=== PATIENT | female | born 1945 | race Caucasian/White ===

== ENCOUNTER → 2019-02-14 | Outpatient (REF) | payer MEDICARE ==
[2019-02-14 14:59] LABS: BACTERIA, URINE AUTO NEGATIVE (NEGATIVE); RBC, URINE AUTO TNTC /HPF (0-3); SQUAMOUS EPITHELIAL CELL UR AU 0 /HPF (0-6); WBC, URINE AUTO 12 /HPF (0-3)
== END ==
LOC: M SMT 13:02
PROVIDERS: ATTEND Specialist
DX: R31.0 Gross hematuria (principal)
CPT/HCPCS: 52281; 81015; 87086; 88108; G0463

== ENCOUNTER → 2019-03-01 | Outpatient (CLI) | payer MEDICARE ==
[~2019-03-01] MED LIST: ASPI81TA85 PO; DILT240C83 PO; ELIQ5TAB PO
--- NOTE | 2019-03-01 14:04 | REP ---
KUB ABDOMEN AND PELVIS: KUB film of the abdomen and pelvis performed. Bowel gas pattern is nonobstructive. Scattered vascular calcifications are seen in the abdomen and pelvis. A punctate calcification overlies the lower pole of the right kidney, approximately 2 mm in diameter. There is a phlebolith in the right pelvis. A vague 5 mm calcification is seen in the left pelvis. This could represent a phlebolith or distal ureteral calculus. Electronically Signed by Tristen Nathan MD 03/01/2019 06:31 P
== END ==
LOC: M SMT 13:05
PROVIDERS: ATTEND Nurse Practitioner Family
DX: N20.0 Calculus of kidney (principal)

== ENCOUNTER 2019-03-20 05:54 | Day surgery (SDC) | payer MEDICARE ==
[~2019-03-20] VITALS: Ht 165.1 cm; Wt 61.4 kg
[2019-03-20] MEDS ORDERED: ceFAZolin SOD 2 GM in IV 1 EA IV ONE (06:00)
[2019-03-20] MEDS ORDERED: LR 1,000 ML IV ONE (06:00)
[2019-03-20] MEDS ORDERED: LIDOCAINE 2% 5ML JELLY UROJET As Ordered ONE (06:38)
[2019-03-20] MEDS ORDERED: LIDOCAINE 1% MDV INJ 50 ML VIAL As Ordered ONE (06:38)
[2019-03-20] MEDS ORDERED: PROPOFOL 200 MG/20 ML VIAL As Ordered ONE ×2 (07:16→07:17)
[2019-03-20] MEDS ORDERED: fentaNYL 100 MCG/2 ML INJECTION (J3010) As Ordered ONE (07:17)
[2019-03-20] MEDS ORDERED: LIDOCAINE 2% INJ 100 MG/5 ML SDV (FOR ANES.) As Ordered ONE (07:17)
[2019-03-20] MEDS ORDERED: ONDANSETRON 4MG/2ML VIAL (J2405) As Ordered ONE (07:17)
[2019-03-20] MEDS ORDERED: dexameTHASONE 4 MG/ML 1ML VIAL (J1100) As Ordered ONE (07:17)
[2019-03-20] MEDS ORDERED: MIDAZOLAM INJ 2 MG/2 ML VIAL (J2250) As Ordered ONE (07:33)
[2019-03-20] MEDS ORDERED: CONRAY-60 60% 50ML VIAL (Q9961) As Ordered ONE (07:55)
[2019-03-20] MEDS ORDERED: LR 1,000 ML IV SCH (08:45)
[2019-03-20] MEDS ORDERED: PERCOCET 5MG/325MG TAB PO PRN (08:45)
[2019-03-20] MEDS ORDERED: METOCLOPRAMIDE INJ 10MG/2ML VIAL (J2765) IV PRN (08:45)
[2019-03-20] MEDS ORDERED: ONDANSETRON 4MG/2ML VIAL (J2405) IV PRN (08:45)
[2019-03-20] MEDS ORDERED: MEPERIDINE INJ 25 MG/ML VIAL (J2175) IV PRN (08:45)
[2019-03-20 08:55] VITALS: BP 128/66
--- NOTE | 2019-03-20 09:21 | RO ---
DATE OF SURGICAL PROCEDURE: 03/20/2019 PREOPERATIVE DIAGNOSIS: Gross hematuria but later found to have a left ureteral stone and a questionable small papillary lesion in the office. POSTOPERATIVE DIAGNOSIS: It appeared that the stone has passed and there were no significant abnormalities seen on cystoscopy. SURGEON: Dr. Ratna Lord LEAF SIZE PICKER: PROCEDURE: Cystoscopy and left retrograde pyelogram. ANESTHESIA: Intravenous (IV) sedation. FINDINGS: No papillary lesions and no filling defects, hydronephrosis, or ureteral dilation on retrograde pyelogram. INDICATIONS FOR PROCEDURE: The patient is a 73-year-old smoker who was seen for intermittent episodes of painless gross hematuria while on Eliquis with a factor V Leiden deficiency. She had a CT scan 02/06/2019 and this just showed for what believed to be renal vascular calcifications, but possibly nonobstructing calculi. A cystoscopy was done in the office on 02/14/2019 and there was a questionable small papillary lesion near the right ureteral orifice. Because the patient continued to have gross hematuria for so long it was decided to bring her to the operating room to do a biopsy of this area. In the meanwhile, she developed left flank pain and was seen at [facility] where a CT scan was done in February, which now showed a 4.5 mm stone in the distal left ureter. Since that time though, she has been pain-free and has passed some sands. She also has had no further gross hematuria. We discussed cancelling the procedure but she wants to make sure #1 that her stone had passed since there was a calcification seen on KUB and also about the lesions even though I had explained when I first saw it that I did not think it was very worrisome but because we could find no other reason for the gross hematuria thought it should be biopsied. Informed consent was obtained and we decided to proceed to the operating room. DESCRIPTION OF PROCEDURE: The patient was brought into the operating room. Sequential compression devices were in place and preoperative antibiotics had been given with Ancef. She was placed in the lithotomy position and prepped and draped in the usual fashion. Next, a 21-Danish cystoscope was inserted. The urethra was noted to be open without any evidence of lesions or strictures. Upon entering the bladder both ureteral orifices were seen. There was no evidence of sand or stone fragments seen in the bladder. The previously seen papillary lesion was no longer visualized. At this point, a cone-tip catheter was placed in the left ureteral orifice and a retrograde pyelogram was done. There was no filling defects, no dilation, and no hydronephrosis. At this point, it was decided not to look further since most likely she had passed the stone and that was the reason for the bleeding. The patient tolerated the procedure well and was returned to recovery room in stable condition.
[2019-03-20] MEDS ORDERED: fentaNYL 100 MCG/2 ML INJECTION (J3010) IV PRN (09:45)
== END 2019-03-20 08:58 | disposition home or self-care (01) ==
LOC: M SDC 05:54
PROVIDERS: ATTEND Specialist
DX: R31.0 Gross hematuria (principal); F17.210 Nicotine dependence, cigarettes, uncomplicated; D68.51 Activated protein C resistance; I48.91 Unspecified atrial fibrillation; M81.0 Age-related osteoporosis without current pathological fracture; Z88.1 Allergy status to other antibiotic agents; Z88.6 Allergy status to analgesic agent; Z88.8 Allergy status to other drugs, medicaments and biological substances; Z79.899 Other long term (current) drug therapy; Z79.01 Long term (current) use of anticoagulants; Z79.82 Long term (current) use of aspirin; Z87.442 Personal history of urinary calculi; Z86.718 Personal history of other venous thrombosis and embolism; Z98.51 Tubal ligation status; Z78.0 Asymptomatic menopausal state
CPT/HCPCS: 52000; 74420; C1769; J0690; J1100; J2250; J2405; J3010; Q9961

== ENCOUNTER 2019-06-28 08:43 | Day surgery (SDC) | payer MEDICARE ==
[~2019-06-28] VITALS: Ht 165.1 cm; Wt 60.3 kg
[~2019-06-28 08:43] MED LIST changes: +D3 22000 PO; +LIDOCAINE 2% INJ 100 MG/5 ML SDV (FOR ANES.) As Ordered ONE; +NS 1,000 ML IV ONE; +propofoL 200 MG/20 ML VIAL As Ordered ONE
--- NOTE | 2019-06-28 10:38 | ROOR ---
Patient Name: Marlene Owen Procedure Date: 06/28/2019 10:01 AM Date of : 1945 Age: 73 Room: [facility] Gender: Female Note Status: Finalized Procedure: Total Colonoscopy to Cecum + Biopsy Polypectomy + Hemoclip Indications: Positive Cologuard test Providers: Javed Mary MD Referring MD: JOHANN DAMON MD Requesting Provider: Medicines: Monitored Anesthesia Care Complications: No immediate complications. Procedure: Pre-Anesthesia Assessment: - The heart rate, respiratory rate, oxygen saturations, blood pressure, adequacy of pulmonary ventilation, and response to care were monitored throughout the procedure. The Colonoscope was introduced through the anus and advanced to the cecum, identified by appendiceal orifice and ileocecal valve. The colonoscopy was performed without difficulty. The patient tolerated the procedure well. The quality of the bowel preparation was excellent. Findings: The perianal and digital rectal examinations were normal. Non-bleeding internal hemorrhoids were found during retroflexion. The hemorrhoids were small and Grade I (internal hemorrhoids that do not prolapse). Multiple small and large-mouthed diverticula were found in the recto-sigmoid colon, sigmoid colon and descending colon. A small polyp was found in the rectum. The polyp was sessile. The polyp was removed with a jumbo cold forceps. Resection and retrieval were complete. A small polyp was found at 60 cm proximal to the anus. The polyp was sessile. The polyp was removed with a jumbo cold forceps. Resection and retrieval were complete. To prevent bleeding after the polypectomy, one hemostatic clip was successfully placed (MR conditional). There was no bleeding at the end of the procedure. The exam was otherwise without abnormality on direct and retroflexion views. Impression: - Non-bleeding internal hemorrhoids. - Diverticulosis in the recto-sigmoid colon, in the sigmoid colon and in the descending colon. - One small polyp in the rectum, removed with a jumbo cold forceps. Resected and retrieved. - One small polyp at 60 cm proximal to the anus, removed with a jumbo cold forceps. Resected and retrieved. Clip (MR conditional) was placed. - The examination was otherwise normal on direct and retroflexion views. - The exam was otherwise normal to the cecum. Recommendation: - Patient has a contact number available for emergencies. The signs and symptoms of potential delayed complications were discussed with the patient. Return to normal activities tomorrow. Written discharge instructions were provided to the patient. - High fiber diet. - Discharge patient to home. - Continue present medications. - Await pathology results. - Telephone GI clinic for pathology results in 1 week. - Repeat colonoscopy for symptoms only. - Return to referring physician. - The findings and recommendations were discussed with the patient's family. Javed Mary MD Javed Mary MD 06/28/2019 10:38:25 AM Electronically signed by Javed Mary MD Number of Addenda: 0 Note Initiated On: 06/28/2019 10:01 AM Estimated Blood Loss: Estimated blood loss: none.
[2019-06-28 11:00] VITALS: BP 121/79
== END 2019-06-28 11:15 | disposition home or self-care (01) ==
LOC: M OPP 08:43
PROVIDERS: ATTEND Internal Medicine Gastroenterology
DX: K64.0 First degree hemorrhoids (principal); K52.1 Toxic gastroenteritis and colitis; I48.91 Unspecified atrial fibrillation; K63.5 Polyp of colon; Z79.82 Long term (current) use of aspirin; Z88.8 Allergy status to other drugs, medicaments and biological substances; F17.210 Nicotine dependence, cigarettes, uncomplicated

== ENCOUNTER → 2020-12-23 | Outpatient (REF) | payer MEDICARE ==
[~2020-12-23] MED LIST changes: -ASPI81TA85 PO; +ASPI81TA86 PO; -LIDOCAINE 2% INJ 100 MG/5 ML SDV (FOR ANES.) As Ordered ONE; -NS 1,000 ML IV ONE; -propofoL 200 MG/20 ML VIAL As Ordered ONE
[2020-12-23 14:52] LABS: APPEARANCE, URINE HAZY (CLEAR); BACTERIA, URINE AUTO NEGATIVE (NEGATIVE); BILIRUBIN, URINE AUTO NEGATIVE (NEGATIVE); BLOOD, URINE BLOOD NEGATIVE (NEGATIVE); CALCIUM OXALATE CRYSTALS MODERATE; COLOR, URINE YELLOW (YELLOW); GLUCOSE, URINE (UA) AUTO NEGATIVE (NEGATIVE); KETONE, URINE AUTO NEGATIVE (NEGATIVE); LEUKOCYTE ESTERASE, URINE AUTO 2+ (NEGATIVE); MUCUS, URINE SMALL (NEGATIVE); NITRITE, URINE AUTO NEGATIVE (NEGATIVE); PROTEIN, URINE AUTO NEGATIVE (NEGATIVE); RBC, URINE AUTO 2 /HPF (0-3); SPECIFIC GRAVITY URINE AUTO 1.016 (1.002-1.035); SQUAMOUS EPITHELIAL CELL UR AU 6 /HPF (0-6); WBC, URINE AUTO 7 /HPF (0-3)
== END ==
LOC: M SMT 13:04
PROVIDERS: ATTEND Nurse Practitioner Family
DX: R31.0 Gross hematuria (principal)
CPT/HCPCS: 81001; 87086; 88108; G0463